=== PATIENT | male | born 1960 | race Hispanic/Latino ===

== ENCOUNTER 2016-11-24 20:57 | Emergency (ER) | payer MEDICAID ==
[2016-11-24 21:01] VITALS: BP 151/87; PULSE 86; RESP 18; O2SAT 98
--- NOTE | 2016-11-24 21:34 | ED PDOC ---
HPI: Psych/Substance Abuse Time Seen by Provider: 11/24/16 21:09 Chief Complaint (Nursing): Alcohol Ingestion Chief Complaint (Provider): Alcohol Ingestion Past Medical History Vital Signs: Last Vital Signs Temp Pulse 86 11/24/16 20:59 Resp 18 11/24/16 20:59 BP 151/87 H 11/24/16 20:59 Pulse Ox 98 11/24/16 20:59 - Medical History PMH: Denies: Diabetes, Hepatitis, HIV, HTN, Seizures, Sexually Transmitted Disease - Family History Family History: States: Unknown Family Hx - Immunization History Hx Tetanus Toxoid Vaccination: Yes (11/28/15) Hx Influenza Vaccination: Yes Hx Pneumococcal Vaccination: No - Home Medications Home Medications: Ambulatory Orders Medication Instructions Recorded Chlordiazepoxide Hydrochlori 1 cap PO TID #7 cap 03/05/15 [Librium] Folic Acid 1 mg PO DAILY #30 tab 03/05/15 Multimineral/Multivitamin 1 tab PO DAILY #30 tab 03/05/15 [Therapeutic-M Tab] Thiamine [Vitamin B1 Tab] 100 mg PO DAILY #30 tab 03/05/15 Cyclobenzaprine [Cyclobenzaprine 10 mg PO TID #20 tab 12/01/15 HCl] Ibuprofen [Motrin] 600 mg PO Q6 #20 tab 12/01/15 oxyCODONE/Acetaminophen [Percocet 1 ea PO Q6 PRN #5 tab 12/01/15 5/325 mg Tab] - Allergies Allergies/Adverse Reactions: Allergies Allergy/AdvReac Type Severity Reaction Status Date / Time No Known Allergies Allergy Verified 12/06/15 21:19 - ECG O2 Sat by Pulse Oximetry: 98 Medical Decision Making Medical Decision Making: Entered pts room 10 minutes after pt was admitted. Upon arrival, pt was missing from room. Pt elopement. Scribe Attestation: Documented by Fiordaliza Aguilar, acting as a scribe for Merissa Gonzales PA-C. Provider Scribe Attestation: All medical record entries made by the Scribe were at my direction and personally dictated by me. I have reviewed the chart and agree that the record accurately reflects my personal performance of the history, physical exam, medical decision making, and the department course for this patient. I have also personally directed, reviewed, and agree with the discharge instructions and disposition. Disposition - Clinical Impression Clinical Impression: Alcohol abuse - Patient ED Disposition Is Patient to be Admitted: No - Disposition Disposition: Eloped Disposition Time: 21:34 Condition: UNKNOWN Forms: [employer] (Lao)
== END 2016-11-24 21:30 | disposition left against medical advice (07) ==
LOC: H.ER 20:57
DX: F10.10 Alcohol abuse, uncomplicated (principal)

== ENCOUNTER 2017-03-26 22:51 | Emergency (ER) | payer MEDICAID ==
[2017-03-26 23:18] VITALS: BP 131/79; PULSE 78; RESP 16; TEMP 98.2; O2SAT 97
[2017-03-27] MEDS ORDERED: Sodium Chloride 0.9% 1,000 ML IV STA (01:45)
--- NOTE | 2017-03-27 01:47 | ED PDOC ---
HPI:Nausea, Vomiting, Diarrhea Time Seen by Provider: 03/27/17 01:38 Chief Complaint (Nursing): Abdominal Pain Chief Complaint (Provider): vomiting, diarrhea History Per: Patient History/Exam Limitations: no limitations Onset/Duration Of Symptoms: Days (2) Current Symptoms Are (Timing): Still Present Additional History Per: Patient Additional Complaint(s): 56 y/o male presents with vomiting, diarrhea x 2 days. Patient states he is unable to keep anything down, including water. Denies fever, chest pain, shortness of breath, palpitations, recent travel, sick contacts. Past Medical History Reviewed: Historical Data, Nursing Documentation, Vital Signs Vital Signs: Last Vital Signs Temp 98.2 F 03/26/17 23:16 Pulse 78 03/26/17 23:16 Resp 16 03/26/17 23:16 BP 131/79 03/26/17 23:16 Pulse Ox 97 03/26/17 23:16 - Medical History PMH: No Chronic Diseases Denies: Diabetes, Hepatitis, HIV, HTN, Seizures, Sexually Transmitted Disease - Surgical History Surgical History: No Surg Hx - Family History Family History: States: Unknown Family Hx - Living Arrangements Living Arrangements: Alone - Social History Current smoker - smoking cessation education provided: Yes Alcohol: > 2 Drinks/Day Drugs: Denies - Immunization History Hx Tetanus Toxoid Vaccination: Yes (11/28/15) Hx Influenza Vaccination: Yes Hx Pneumococcal Vaccination: No - Home Medications Home Medications: Ambulatory Orders Medication Instructions Recorded Chlordiazepoxide Hydrochlori 1 cap PO TID #7 cap 03/05/15 [Librium] Folic Acid 1 mg PO DAILY #30 tab 03/05/15 Multimineral/Multivitamin 1 tab PO DAILY #30 tab 03/05/15 [Therapeutic-M Tab] Thiamine [Vitamin B1 Tab] 100 mg PO DAILY #30 tab 03/05/15 Cyclobenzaprine [Cyclobenzaprine 10 mg PO TID #20 tab 12/01/15 HCl] Ibuprofen [Motrin] 600 mg PO Q6 #20 tab 12/01/15 oxyCODONE/Acetaminophen [Percocet 1 ea PO Q6 PRN #5 tab 12/01/15 5/325 mg Tab] Dicyclomine [Bentyl] 20 mg PO TID PRN #15 tab 03/27/17 Ondansetron ODT [Zofran ODT] 4 mg PO Q8 PRN #10 odt 03/27/17 - Allergies Allergies/Adverse Reactions: Allergies Allergy/AdvReac Type Severity Reaction Status Date / Time No Known Allergies Allergy Verified 12/06/15 21:19 Review of Systems ROS Statement: Except As Marked, All Systems Reviewed And Found Negative Gastrointestinal: Positive for: Nausea, Vomiting, Abdominal Pain, Diarrhea Physical Exam - Reviewed Nursing Documentation Reviewed: Yes Vital Signs Reviewed: Yes - Physical Exam Appears: Positive for: Well, Non-toxic, No Acute Distress Head Exam: Positive for: ATRAUMATIC, NORMAL INSPECTION, NORMOCEPHALIC Skin: Positive for: Normal Color Eye Exam: Positive for: Normal appearance ENT: Positive for: Normal ENT Inspection Cardiovascular/Chest: Positive for: Regular Rate, Rhythm Respiratory: Positive for: Normal Breath Sounds Gastrointestinal/Abdominal: Positive for: Bowel Sounds, Soft, Tenderness ( epigastric) Back: Positive for: Normal Inspection Extremity: Positive for: Normal ROM Neurologic/Psych: Positive for: Alert, Oriented - Laboratory Results Result Diagrams: 03/27/17 02:28 03/27/17 02:28 - ECG O2 Sat by Pulse Oximetry: 97 - Progress ED Course And Treament: labs, IV zofran, IV pepcid, On re-eval, patient tolerated juice. Patient educated on findings, discharged with rx Zofran, Bentyl Advised fluids, bland diet. Follow up PMD 2-3 days. Return precautions given Disposition - Clinical Impression Clinical Impression: Gastroenteritis - Patient ED Disposition Is Patient to be Admitted: No Counseled Patient/Family Regarding: Studies Performed, Diagnosis, Need For Followup, Rx Given - Disposition Referrals: Vaughn Acuna MD [Primary Care Provider] - Disposition: Routine/Home Disposition Time: 04:57 Condition: IMPROVED Prescriptions: Dicyclomine [Bentyl] 20 mg PO TID PRN #15 tab PRN Reason: Pain, Mild (1-3) Ondansetron ODT [Zofran ODT] 4 mg PO Q8 PRN #10 odt PRN Reason: Nausea/Vomiting Instructions: Gastroenteritis (ED) Forms: [employer] (Vincentian)
[2017-03-27 02:36] LABS: BASO % 0.6 % (0.0-2.0); EOS # 0.1 K/uL (0.0-0.7); EOS % 0.8 % (0.0-4.0); HEMOGLOBIN 13.3 g/dL (12.0-18.0); LYMPH # 3.4 K/uL (1.0-4.3); LYMPH % 52.7 % (20.0-40.0); MEAN CELL VOLUME 96.9 fl (80.0-94.0); MEAN PLATELET VOLUME 8.4 fl (7.2-11.7); MONO % 15.1 % (0.0-10.0); NEUT % 30.8 % (50.0-75.0); NRBC % 0.1 % (0.0-0.0); RBC 4.17 Mil/uL (4.40-5.90); RED CELL DISTRIBUTION WIDTH 14.1 % (11.5-14.5); WHITE BLOOD COUNT 6.4 K/uL (4.8-10.8)
[2017-03-27 02:42] LABS: ALB/GLOB RATIO 1.3 (1.0-2.1); ALBUMIN 3.8 g/dL (3.5-5.0); ALT/SGPT 106 U/L (21-72); AST/SGOT 136 U/L (17-59); BLOOD UREA NITROGEN 14 mg/dl (9-20); CALCIUM 9.2 mg/dL (8.4-10.2); GFR AFRICAN-AMERICAN > 60; GFR NON-AFRICAN AMERICAN > 60; LIPASE 272 U/L (23-300)
== END 2017-03-27 06:59 | disposition home or self-care (01) ==
LOC: H.ER 22:51
DX: K52.9 Noninfective gastroenteritis and colitis, unspecified (principal)
CPT/HCPCS: 80053; 83690; 85025; 87804; 96361; 96374; 96375; 99282; J2405; J7040

== ENCOUNTER 2017-04-16 23:34 | Emergency (ER) | payer MEDICAID ==
[2017-04-16 23:52] VITALS: BP 143/76; PULSE 80; RESP 17; TEMP 98.4; O2SAT 98
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
== END 2017-04-17 03:13 | disposition home or self-care (01) ==
LOC: H.ER 23:34
DX: M25.561 Pain in right knee (principal); H01.003 Unspecified blepharitis right eye, unspecified eyelid; H01.006 Unspecified blepharitis left eye, unspecified eyelid